=== PATIENT | female | born 1995 | race Two or more races ===

== ENCOUNTER 2020-02-01 11:58 | Emergency (ER) | payer OTHER ==
[~2020-02-01] VITALS: Ht 152.4 cm; Wt 56.7 kg
== END 2020-02-01 13:58 | disposition home or self-care (01) ==
LOC: ER 11:58
DX: O21.0 Mild hyperemesis gravidarum (principal); Z34.01 Encounter for supervision of normal first pregnancy, first trimester

== ENCOUNTER → 2020-02-28 | Outpatient (CLI) | payer OTHER | END | disposition home or self-care (01) | LOC: PRENATAL 09:30 | DX: O99.89 Other specified diseases and conditions complicating pregnancy, childbirth and the puerperium (principal); O36.80X1 Pregnancy with inconclusive fetal viability, fetus 1; O34.211 Maternal care for low transverse scar from previous cesarean delivery; Z36.89 Encounter for other specified antenatal screening ==

== ENCOUNTER 2020-03-23 13:49 | Emergency (ER) | payer OTHER ==
[~2020-03-23] VITALS: Ht 160 cm; Wt 54.4 kg
[2020-03-23] MEDS ORDERED: TAPAZOLE10 MG (14:05)
== END 2020-03-23 17:54 | disposition home or self-care (01) ==
LOC: ER 13:49
DX: O26.852 Spotting complicating pregnancy, second trimester (principal); O44.02 Complete placenta previa NOS or without hemorrhage, second trimester; Z3A.15 15 weeks gestation of pregnancy

== ENCOUNTER 2020-03-30 10:19 | Emergency (ER) | payer OTHER ==
[~2020-03-30] VITALS: Ht 160 cm; Wt 57.6 kg
[~2020-03-30 10:19] MED LIST: TAPAZOLE10 MG
== END 2020-03-30 17:50 | disposition home or self-care (01) ==
LOC: ER 10:19
DX: O26.852 Spotting complicating pregnancy, second trimester (principal); O26.842 Uterine size-date discrepancy, second trimester; O44.02 Complete placenta previa NOS or without hemorrhage, second trimester; O26.892 Other specified pregnancy related conditions, second trimester; N20.9 Urinary calculus, unspecified; Z3A.16 16 weeks gestation of pregnancy

== ENCOUNTER → 2020-04-28 | Outpatient (CLI) | payer OTHER | END | disposition home or self-care (01) | LOC: PRENATAL 04-21 09:00 | PROVIDERS: ATTEND Obstetrics & Gynecology Maternal & Fetal Medicine | DX: O99.89 Other specified diseases and conditions complicating pregnancy, childbirth and the puerperium (principal); O34.211 Maternal care for low transverse scar from previous cesarean delivery; O35.3XX1 Maternal care for (suspected) damage to fetus from viral disease in mother, fetus 1; O98.512 Other viral diseases complicating pregnancy, second trimester; Z36.89 Encounter for other specified antenatal screening; Z3A.21 21 weeks gestation of pregnancy ==

== ENCOUNTER 2020-05-27 20:46 | Inpatient (IN) | payer OTHER ==
[~2020-05-27] VITALS: Ht 160 cm; Wt 62.1 kg
== END 2020-05-28 10:59 | disposition home or self-care (01) | DRG 833 ==
LOC: LDR 20:46
PROVIDERS: ADMIT Obstetrics & Gynecology Obstetrics; ATTEND Obstetrics & Gynecology Obstetrics
PROC: BY4CZZZ Ultrasonography of Second Trimester, Single Fetus (ICD-10-PCS; principal; 2020-05-27)
PROC: 4A1HXCZ Monitoring of Products of Conception, Cardiac Rate, External Approach (ICD-10-PCS; 2020-05-27)
DX: O60.02 Preterm labor without delivery, second trimester (principal); Z20.828 Contact with and (suspected) exposure to other viral communicable diseases

== ENCOUNTER 2020-06-22 17:44 | Outpatient (CLI) | payer OTHER ==
[~2020-06-22] VITALS: Ht 160 cm; Wt 66.7 kg
[2020-06-23] MEDS ORDERED: PRENATABS RX T1 EACH PO (16:01)
== END 2020-06-23 19:30 | disposition left against medical advice (07) ==
LOC: OBS/DEL 17:44 → LDR 06-23 15:29 → OBS/DEL 06-23 19:30 → LDR 06-23 19:30
PROVIDERS: ATTEND Obstetrics & Gynecology Obstetrics
DX: O60.03 Preterm labor without delivery, third trimester (principal); O26.893 Other specified pregnancy related conditions, third trimester; R10.2 Pelvic and perineal pain

== ENCOUNTER 2020-06-26 18:15 | Outpatient (CLI) | payer OTHER ==
[~2020-06-26 18:15] MED LIST changes: +PRENATABS RX T1 EACH PO
== END 2020-06-27 13:10 | disposition home or self-care (01) ==
LOC: OBS/DEL 18:15
PROVIDERS: ATTEND Obstetrics & Gynecology Obstetrics
DX: O26.893 Other specified pregnancy related conditions, third trimester (principal); R10.2 Pelvic and perineal pain; O23.43 Unspecified infection of urinary tract in pregnancy, third trimester

== ENCOUNTER → 2020-06-29 | Outpatient (CLI) | payer OTHER | END | disposition home or self-care (01) | LOC: PRENATAL 06-23 10:00 | PROVIDERS: ATTEND Obstetrics & Gynecology Maternal & Fetal Medicine | DX: O26.843 Uterine size-date discrepancy, third trimester (principal); O99.283 Endocrine, nutritional and metabolic diseases complicating pregnancy, third trimester; O34.211 Maternal care for low transverse scar from previous cesarean delivery; Z36.89 Encounter for other specified antenatal screening; Z3A.29 29 weeks gestation of pregnancy ==

== ENCOUNTER 2020-08-28 16:46 | Inpatient (IN) | payer OTHER ==
[~2020-08-28] VITALS: Ht 160 cm; Wt 68.0 kg
== END 2020-08-31 15:03 | disposition home or self-care (01) | DRG 785 ==
LOC: LDR 16:46 → OB/GYN 16:46 → O/R 22:47 → OB/GYN 08-29 00:40
PROVIDERS: ADMIT Obstetrics & Gynecology Obstetrics; ATTEND Obstetrics & Gynecology Obstetrics
PROC: 0UB70ZZ Excision of Bilateral Fallopian Tubes, Open Approach (ICD-10-PCS; 2020-08-28)
PROC: 4A1HXFZ Monitoring of Products of Conception, Cardiac Rhythm, External Approach (ICD-10-PCS; 2020-08-28)
PROC: 10D00Z1 Extraction of Products of Conception, Low, Open Approach (ICD-10-PCS; principal; 2020-08-28 22:15)
DX: O34.211 Maternal care for low transverse scar from previous cesarean delivery (principal); Z30.2 Encounter for sterilization; Z3A.38 38 weeks gestation of pregnancy; Z37.0 Single live birth